=== PATIENT | female | born 1940 | race Caucasian/White ===

== ENCOUNTER 2019-09-03 16:45 | Inpatient (IN) | payer MEDICARE ==
[~2019-09-03 16:45] MED LIST: Heparin 10,000 UNITS/ 10 ML VIAL ONE; Metoprolol Tartrate 5 MG/5 ML VIAL ONE; Nitroglycerin 0.4 MG TAB (25 Tab Bottle) ONE
[2019-09-03 17:02] LABS: #Eosinphils 0.2 thou/uL (0.0-0.7); #Lymphocytes 2.7 thou/uL (1.20-3.40); #Monocytes 0.9 thou/uL (0.11-0.59); %Eosinophils 2.1 % (0.0-10.0); %Lymphocytes 27.6 % (21.0-51.0); %Monocytes 9.3 % (0.0-10.0); %Neutrophils 60.9 % (42.0-75.0); Hemoglobin 9.4 g/dL (12.0-16.0); Mean Corpuscular HGB CONC 32.3 g/dL (32.0-36.0); Mean Corpuscular Hemoglobin 26.2 pg (27.0-31.0); Mean Corpuscular Volume 81.2 fL (78.0-98.0); Mean Platelet Volume 7.6 fL (7.4-10.4); Platelet Count 323 thou/uL (130-400); RBC Distribution Width 14.4 % (11.5-14.5); Red Blood Cell (RBC) Count 3.58 mill/uL (4.20-5.40); White Blood Cell (WBC) Count 9.8 thou/uL (4.8-10.8)
[2019-09-03] MEDS ORDERED: Nitroglycerin 2% Ointment 1 INCH/1 GM Packet ONE (17:14)
--- NOTE | 2019-09-03 17:25 | RAD ---
CHEST ONE VIEW: Indication: History of FTMI. Comparison: 02-19-14 FINDINGS: There is cardiomegaly with pulmonary vascular congestion. There are tiny bilateral pleural effusions. There is mild interstitial edema. There is midline sternotomy changes. No acute osseous abnormality is evident. IMPRESSION: Findings suspicious for mild CHF. POS: CET
[2019-09-03 17:26] LABS: INR-International Normal Ratio 1.3; PTT 33.3 SEC (22.9-36.1); Prothrombin Time 16.5 SEC (12.0-14.7)
[2019-09-03 17:42] LABS: ALT (SGPT) 17 U/L (8-55); AST (SGOT) 34 U/L (5-34); Albumin 3.9 g/dL (3.4-4.8); Alkaline Phosphatase 77 U/L (40-110); Anion Gap 15 mmol/L (10-20); BUN (Urea Nitrogen) 33 mg/dL (9.8-20.1); Bilirubin, Total 0.3 mg/dL (0.2-1.2); CK (CPK) 79 U/L (29-168); Calc. Creatinine Clearance 0 mL/min (70-130); Carbon Dioxide 22 mmol/L (23-31); Chloride 97 mmol/L (98-107); Estimated GFR-MDRD 30; Globulin 3.2 g/dL (2.4-3.5); Glucose 347 mg/dL (83-110); Potassium 5.6 mmol/L (3.5-5.1); Protein, Total 7.1 g/dL (6.0-8.3); Sodium 128 mmol/L (136-145)
[2019-09-03 17:54] LABS: CKMB 3.1 ng/mL (0-6.6)
--- NOTE | 2019-09-03 20:35 | PDOC.FPRHP ---
- History of Present Illness Chief Complaint: chest pain History of Present Illness: Patient is a 79F with a PMHx of afib, DM2, HTN, HLD, CAD that presents with chest pain. Per the patient the pain began around 130pm today. She describes the pain as tightness. She also describes pain of her upper arms bilaterally. She has a hx of an KS and cardiac stent placed in March 2004 and cardiac bypass in June 2004. She also had a cath in 2013 at which point it was recommended to her to pursue medical management. With her hx of afib, she also reports of several cardioversions in the past. Patient in NSR on evaluation. Dr. Kumar was consulted from the ED and recommended that the patient be started on a heparin drip and given 5mg metoprolol. By the time of evaluation the patient's chest pain had resolved with nitrostat. ED Course: sublingal nitro x 2, 5mg lopressor, 5000u heparin - Allergies/Adverse Reactions Allergies Allergy/AdvReac Type Severity Reaction Status Date / Time Sulfa (Sulfonamide Allergy Verified 02/08/14 21:53 Antibiotics) - Home Medications Medication Instructions Recorded Confirmed Type Docusate [Colace] 100 mg PO DAILY 02/09/14 09/04/19 History Glimepiride 2 tab PO QAM 02/09/14 09/04/19 History Glimepiride 4 mg PO QPM 02/09/14 09/04/19 History Levemir Flexpen [Levemir FlexPen] 35 units SQ BID 02/09/14 09/04/19 History Lorazepam 1 mg PO TID 02/09/14 09/04/19 History Omeprazole [Prilosec] 20 mg PO DAILY 02/09/14 09/04/19 History Rosuvastatin [Crestor] 0.5 tab PO DAILY 02/09/14 09/04/19 History Temazepam 15 mg PO HS 02/09/14 09/04/19 History Ubidecarenone [Co Q-10] 200 mg PO DAILY 02/09/14 09/04/19 History Apixaban [Eliquis] 5 mg PO BID #0 tab 02/13/14 09/04/19 Rx Aspirin [Ecotrin Low Strength] 81 mg PO DAILY #0 tab 02/13/14 09/04/19 Rx Carvedilol [Coreg] 3.125 mg PO BID 09/04/19 09/04/19 History Furosemide [Lasix] 20 mg PO DAILY-AC 09/04/19 09/04/19 History Ranolazine [Ranexa] 500 mg PO TID 09/04/19 09/04/19 History - History PMHx: afib, DM2, HTN, HLD, CAD PSHx: cardiac bypass 2003, cardiac cath 2013, cholecystectomy, hysterectomy FHx: both parents had CAD Social: no smoking hx, no etoh use, no drug use - Review of Systems General: denies: fever/chills, weight/appetite/sleep changes Eyes: denies: eye pain, vision changes ENT: denies: nasal congestion, rhinorrhea Respiratory: denies: cough, shortness of breath Cardiovascular: reports: chest pain, edema Gastrointestinal: reports: nausea. denies: vomiting, diarrhea Genitourinary: denies: incontinence, polyuria Skin: denies: rashes, jaundice Musculoskeletal: denies: pain, stiffness Neurological: denies: syncope, seizure Psychological: denies: anxiety, depression - Vital signs BP: [144/77] HR: [91] RR: [18] Tmax: [98.1] Pox: [98]% on [RA] Wt: [81.64kg] - Physical Exam Constitutional: NAD, well developed HEENT: EOMI, MMM Neck: supple, FROM Chest: no-tender to palpation, no lesions Heart: RRR, normal S1/S2, other (1+ pitting edema BLE) Lungs: CTAB, no respiratory distress Abdomen: soft, non-tender Musculoskeletal: normal structure, ROM grossly normal Neurological: no focal deficit, normal sensation Skin: no rash/lesions, good turgor Heme/Lymphatic: no unusual bruising or bleeding, no purpura Psychiatric: normal mood and affect, good judgment and insight FMR H&P: Results - Labs Result Diagrams: 09/04/19 04:26 09/04/19 04:26 Lab results: WBC 9.8 thou/uL (4.8-10.8) 09/03/19 16:52 Hgb 9.4 g/dL (12.0-16.0) L 09/03/19 16:52 Hct 29.1 % (36.0-47.0) L 09/03/19 16:52 MCV 81.2 fL (78.0-98.0) 09/03/19 16:52 Plt Count 323 thou/uL (130-400) 09/03/19 16:52 Neutrophils % 60.9 % (42.0-75.0) 09/03/19 16:52 Sodium 128 mmol/L (136-145) L 09/03/19 16:52 Potassium 5.6 mmol/L (3.5-5.1) H 09/03/19 16:52 Chloride 97 mmol/L (98-107) L 09/03/19 16:52 Carbon Dioxide 22 mmol/L (23-31) L 09/03/19 16:52 BUN 33 mg/dL (9.8-20.1) H 09/03/19 16:52 Creatinine 1.65 mg/dL (0.6-1.1) H 09/03/19 16:52 Glucose 347 mg/dL (83-110) H 09/03/19 16:52 Calcium 9.0 mg/dL (7.8-10.44) 09/03/19 16:52 Total Bilirubin 0.3 mg/dL (0.2-1.2) 09/03/19 16:52 AST 34 U/L (5-34) 09/03/19 16:52 ALT 17 U/L (8-55) 09/03/19 16:52 Alkaline Phosphatase 77 U/L (40-110) 09/03/19 16:52 Creatine Kinase 79 U/L (29-168) 09/03/19 16:52 CK-MB (CK-2) 3.1 ng/mL (0-6.6) 09/03/19 16:52 B-Natriuretic Peptide 805.2 pg/mL (0-100) H 09/03/19 16:52 Serum Total Protein 7.1 g/dL (6.0-8.3) 09/03/19 16:52 Albumin 3.9 g/dL (3.4-4.8) 09/03/19 16:52 Lipase 14 U/L (8-78) 09/03/19 16:52 - EKG Interpretation EKG: NSR ST depression I, aVL, V4, V5 No ST elevation - Radiology Interpretation Chest x-ray Status: report reviewed by me (Mild CHF) FMR H&P: A/P - Problem List (1) NSTEMI (non-ST elevated myocardial infarction) Current Visit: Yes Status: Acute Code(s): I21.4 - NON-ST ELEVATION (NSTEMI) MYOCARDIAL INFARCTION (2) History of atrial fibrillation Current Visit: Yes Status: Acute Code(s): Z86.79 - PERSONAL HISTORY OF OTHER DISEASES OF THE CIRCULATORY SYSTEM (3) HTN (hypertension) Current Visit: Yes Status: Acute Code(s): I10 - ESSENTIAL (PRIMARY) HYPERTENSION (4) HLD (hyperlipidemia) Current Visit: Yes Status: Acute Code(s): E78.5 - HYPERLIPIDEMIA, UNSPECIFIED (5) Hx of myocardial infarction Current Visit: Yes Status: Acute Code(s): I25.2 - OLD MYOCARDIAL INFARCTION (6) Diabetes mellitus Current Visit: No Status: Chronic Code(s): E11.9 - TYPE 2 DIABETES MELLITUS WITHOUT COMPLICATIONS (7) Anemia Current Visit: Yes Status: Acute Code(s): D64.9 - ANEMIA, UNSPECIFIED - Plan Patient is a 79F with PMHx of a hx of afib, DM2, HTN, HLD, CAD that is admitted for NSTEMI #NSTEMI #Hx of KS #Hx of cath that resulted in medical management -EKG shows ST depression, no ST elevation -initial troponin 0.07, will continue to trend -chest pain improved with sl nitro -Dr. Kumar consulted in ED, started patient on heparin bolus with recommendations of medical management at this time -will continue heparin drip -appreciate further recs -will continue on heparin with heparin protocol -will continue patient's home meds -nitrostat prn -monitor on telemetry overnight #Anemia -hgb 9.4 -hbg >12 earlier last year -FOBT pending -will closely monitor hgb on heparin drip -iron studies pending #HLD -continue home meds #HTN -continue home meds #CAD -continue home meds #DM2 -continue home meds -ISS -ACHS accuchecks #Hx of afib -patient currently in NSR -will monitor on telemetry DVT ppx: heparin Diet: HH, CC Dispo: inpatient for NSTEMI, heparin drip, cardiology consulted, appreciate recs ; will continue to monitor on telemetry Code: Full PCP: CC FMR H&P: Upper Level - Pertinent history 79 yo F here with complaint of chest pain. She has a known hx of non operable CAD. She was recently admitted to the med with similar complaints. At that time she was also noted to be anemic and was transfused 2 units PRBC. There has been no further work up to characterize the source of the anemia to this point. She also has a hx of HFrEF and DM2. She describes the chest pain as tightness that radiates to her back and arms. This is similar to her previous KS. Cardiology was consulted from the ER who confirmed that she was only amenable to medical management and ordered that she be started on a heparin. PMHx CAD HFrEF DM2 - Pertinent findings See product development intern note for full ROS, PE, vitals, and labs ROS General Denies fever or chills HEENT denies sore throat or ear pain CV Complains of CP. Denies palpitations Resp Denies cough or SOB GI Denies of abdominal pain or n/v/d, denies black or red stools Complains of decreased urinary output Neuro denies weakness or numbness. Complains of 1 episode of lip smacking PE General A&O x4 HEENT NCAT CV RRR, no murmur Resp CTA Abd Soft Extremities no edema, equal pedal pulses Neuro no focal deficits - Plan Date/Time: 09/03/192034 I, Femi Webster DO, have evaluated this patient and agree with findings/plan as outlined by product development intern resident. Pertinent changes/additions are listed here. 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 Webster and Sheng on 09/03. I agree with the History, Examination, Assessment and Plan documented above with any addition or exceptions noted below. HPI as above. Patient was doing nothing in particular when the pain began. Similar to previous episodes. No nausea or diaphoresis. Medical management per cardiology.
[2019-09-03 20:39] LABS: Troponin I 0.147 ng/mL (< 0.028)
[2019-09-03] MEDS ORDERED: Acetaminophen 325 MG TAB PO PRN (21:18)
[2019-09-03] MEDS ORDERED: Ondansetron ODT 4 MG TAB PO PRN (21:18)
[2019-09-03] MEDS ORDERED: Dextrose 50% Abboject 50 ML SYRINGE SLOW IVP PRN (21:18)
[2019-09-03] MEDS ORDERED: Heparin 10,000 UNITS/ 10 ML VIAL SLOW IVP SCH (21:18)
[2019-09-03] MEDS ORDERED: Dextrose 5% in Water 1,000 ML IV PRN (21:18)
[2019-09-03] MEDS ORDERED: Heparin 25,000 units/D5W 500 ML IVPB SCH (21:18)
[2019-09-03] MEDS ORDERED: Non-Formulary Item 1 EACH (Levemir Flexpen [Levemir Flexpen] 35 UNITS) SQ SCH (21:19)
[2019-09-03] MEDS ORDERED: Furosemide 20 MG TAB PO SCH (21:45)
[2019-09-03] MEDS ORDERED: Insulin Glargine 35 UNITS in Pre-Filled Syringe 1 EACH SC SCH (22:00)
[2019-09-03 22:15] LABS: Hemoglobin 7.9 g/dL (12.0-16.0); Platelet Count 225 thou/uL (130-400)
[2019-09-03] MEDS: HumaLOG 300 UNITS/3 ML VIAL SC PRN (22:26)
[2019-09-03 23:08] LABS: Troponin I 0.181 ng/mL (< 0.028)
[2019-09-03 23:39] VITALS: BMI 31.8
--- NOTE | 2019-09-04 00:15 | CON ---
DATE OF CONSULTATION: 09/03/2019 REASON FOR CONSULTATION: Unstable angina. PRIMARY MARKETING STRATEGY MANAGER: Dr. Camden Llanos. Sat Math Tutor most recently seen here Dr. Castillo Ray. HISTORY OF PRESENT ILLNESS: Ms. Rojas is a 79-year-old woman with history of severe coronary disease. The patient was seen here most recently in 2013 with increasing angina. She had undergone bypass surgery in 2003. She had a left internal mammary placed to the LAD and a vein graft to the right coronary artery. In 2013, which she underwent cardiac catheterization noted the right coronary vein graft had occluded. The internal mammary is patent. 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 Really medical therapy is the only option. Dr. Del Valle saw her and deemed her not a reoperative candidate. The patient was recently hospitalized at [facility] with anemia. She received packed red blood cells and had her Ranexa dose increase and then she was released. The patient had the onset of severe substernal chest pain today. She came here and she was mildly tachycardic. She was given metoprolol with that the heart rate came down under 100 and her chest pain resolved. PAST MEDICAL HISTORY: 1. Severe coronary disease as outlined above. 2. Left ventricular dysfunction. 3. Atrial fibrillation, apparently chronic. MEDICATION: She was takin. Eliquis 5 mg twice daily. 2. Aspirin. 3. Ranexa. SOCIAL HISTORY: No alcohol or tobacco. She has a very supportive family. ALLERGIES: SULFA. PHYSICAL EXAMINATION: GENERAL: This is a chronically ill-appearing elderly female, said she is feeling much better now. VITAL SIGNS: Her heart rate is now in the mid 80s. NECK: Neck veins are normal. Carotid normal upstrokes. LUNGS: Clear. CARDIAC: Irregularly irregular. ABDOMEN: Soft, nontender. EXTREMITIES: No clubbing or cyanosis. There is no edema. SKIN: Warm and dry. PSYCHIATRIC: Mood and affect normal. NEUROLOGIC: Grossly normal. DIAGNOSTIC STUDIES: EKG does show incomplete left bundle-branch block with a left axis deviation, some ST depression diffusely in leads 1, aVL, V4 through V6. She has Q-waves in the inferior leads. ASSESSMENT: 1. Probable unstable angina. 2. History of renal failure, most recent creatinine is 2, estimated glomerular filtration rate is 24. 3. History of anemia. 4. Atrial fibrillation. Review of the cardiac catheterization films, there is small diffusely diseased vessels. PLAN: 1. She is receiving beta blockers. 2. Anticoagulation. 3. Further care dictated by hospital course. Job ID: [id number]
[2019-09-04] MEDS: Calcium Carbonate 500 MG ChewTAB PO PRN ×3 (03:29→14:24)
[2019-09-04 04:41] LABS: #Basophils 0.1 thou/uL (0.0-0.2); #Eosinphils 0.2 thou/uL (0.0-0.7); #Lymphocytes 1.7 thou/uL (1.20-3.40); #Monocytes 0.8 thou/uL (0.11-0.59); #Neutrophils 4.7 thou/uL (1.40-6.50); %Basophils 0.9 % (0.0-1.0); %Eosinophils 3.1 % (0.0-10.0); %Lymphocytes 22.9 % (21.0-51.0); %Monocytes 10.6 % (0.0-10.0); %Neutrophils 62.5 % (42.0-75.0); Hemoglobin 8.2 g/dL (12.0-16.0); Mean Corpuscular HGB CONC 32.6 g/dL (32.0-36.0); Mean Corpuscular Hemoglobin 26.3 pg (27.0-31.0); Mean Corpuscular Volume 80.6 fL (78.0-98.0); Mean Platelet Volume 7.3 fL (7.4-10.4); Platelet Count 274 thou/uL (130-400); RBC Distribution Width 14.4 % (11.5-14.5); Red Blood Cell (RBC) Count 3.13 mill/uL (4.20-5.40); White Blood Cell (WBC) Count 7.5 thou/uL (4.8-10.8)
[2019-09-04 05:06] LABS: Anion Gap 12 mmol/L (10-20); BUN (Urea Nitrogen) 31 mg/dL (9.8-20.1); Calc. Creatinine Clearance 38 mL/min (70-130); Calcium 8.6 mg/dL (7.8-10.44); Carbon Dioxide 27 mmol/L (23-31); Cardiac Risk 5.3 (Less than 4.5); Chloride 102 mmol/L (98-107); Cholesterol 158 mg/dl (< 200 Desired); Estimated GFR-MDRD 33; Glucose 186 mg/dL (83-110); HDL Cholesterol 30 mg/dL (>60 Neg Risk); Iron 21 ug/dL (50-170); Iron Binding Capacity, Total 388 mcg/dL (265-497); LDL Cholesterol, Calculated 84 mg/dL; Potassium 4.1 mmol/L (3.5-5.1); Sodium 137 mmol/L (136-145); Triglycerides 222 mg/dL (Less than 150)
[2019-09-04 05:09] LABS: Iron 21 ug/dL (50-170); Iron Binding Capacity, Total 388 mcg/dL (265-497); Troponin I 0.296 ng/mL (< 0.028)
[2019-09-04 05:30] LABS: Ferritin 19.55 ng/mL (10-291)
--- NOTE | 2019-09-04 06:49 | PDOC.FM ---
- Subjective Subjective: Doing well this morning. Chest pain resolved with Nitro last night and has not returned. Denies shortness of breath, melena, hematochezia. Most recent Echo was done at [facility] in [place] last Tuesday. She was transfused 2U there but no workup was done for cause of anemia. She had a problem with anemia years ago that responded to iron and she stopped taking them due to constipation. Reports no workup done at that time. Last colonoscopy >10yrs ago, normal. Reports well balanced diet. - Objective MAR Reviewed: Yes Vital Signs & Weight: Vital Signs (12 hours) Temp Pulse Resp BP Pulse Ox 09/04/19 03:40 97.7 F 87 17 99/60 97 09/03/19 21:18 98.3 F 94 16 129/61 98 Weight Weight 81.647 kg Result Diagrams: 09/04/19 04:26 09/04/19 04:26 Phys Exam - Physical Examination Constitutional: NAD HEENT: moist MMs Neck: supple Respiratory: no wheezing, clear to auscultation bilateral Cardiovascular: RRR, no significant murmur Gastrointestinal: soft, non-tender Musculoskeletal: pulses present Neurological: moves all 4 limbs Psychiatric: normal affect, A&O x 3 Skin: normal turgor Dx/Plan - Plan Plan: 79F with PMHx of a hx of afib, DM2, HTN, HLD, CAD that is admitted for NSTEMI NSTEMI - EKG with ST depression, no ST elevation - Trops 0.07, 0.18, 0.296 - Dr. Kumar consulted, started on Heparin gtt and recommended no cath- medical management. Heparin stopped due to drop in Hgb. - Nitrostat prn Iron deficiency anemia - Hgb 8.2 (>12 earlier last yr) - FOBT collected - Rectal exam with no gross blood HLD - Continue home meds HTN - Continue home meds CAD, Hx of HI - Continue home meds - Bypass in 2003. 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 DM2 - On Levemir 35U BID at home. Will switch to Lantus while inpt - SSI, hypoglycemic protocol. ACHS accuchecks - CC diet Hx of afib - In NSR - On Eliquis outpt. Hold while on heparin gtt CKD - Avoid nephrotoxic meds DVT ppx: SCDs, AC held for anemia Code Status: Full Addendum - Attending - Attending Attestation Date/Time: 09/04/19 8295 I personally evaluated the patient and discussed the management with Dr. Andrew. I agree with the History, Examination, Assessment and Plan documented above with any addition or exceptions noted below. Patient here with concern for unstable angina and symptomatic anemia. She DOES NOT have criteria for full NSTEMI, would be NSTEMI type 2 at most, but her troponins have never trended into positive range. She is off heparin due to concern for GI blood losses. GI has been consulted. Patient required transfusion last week. She has no current chest pain, Cardiology on board.
[2019-09-04] MEDS ORDERED: Aspirin 81 mg Enteric Coated Tablet PO SCH (09:00)
[2019-09-04] MEDS ORDERED: Carvedilol 3.125 MG TAB PO SCH (09:00)
[2019-09-04] MEDS ORDERED: Insulin Glargine 35 UNITS in Pre-Filled Syringe 1 EACH SC SCH (09:00)
[2019-09-04] MEDS ORDERED: Glimepiride 4 MG TAB PO SCH (09:00)
[2019-09-04] MEDS: Furosemide 20 MG TAB PO SCH (09:01)
[2019-09-04] MEDS: Aspirin 325 mg Enteric Coated Tablet PO SCH (09:02)
[2019-09-04] MEDS: Rosuvastatin 5 MG TAB PO SCH (09:02)
[2019-09-04] MEDS: Docusate 100 MG CAP PO SCH (09:03)
[2019-09-04] MEDS: Ubidecarenone 50 MG CAP PO SCH (09:03)
[2019-09-04] MEDS: Lorazepam 1 MG TAB PO SCH ×3 (09:07→21:36)
[2019-09-04] MEDS: Polyethylene Glycol 3350 17 GM Packet PO SCH (09:07)
[2019-09-04] MEDS: Nitroglycerin 0.4 MG TAB (25 Tab Bottle) PO PRN ×5 (10:11→19:34)
[2019-09-04] MEDS: HumaLOG 300 UNITS/3 ML VIAL SC PRN ×3 (12:26→20:40)
[2019-09-04] MEDS: Nitroglycerin 2% Ointment 1 INCH/1 GM Packet TOP SCH ×2 (14:20→20:20)
[2019-09-04] MEDS ORDERED: Amiodarone 150 MG, Admixture Fee 1 EACH in Dextrose 5% in Water 100 ML IVPB SCH (18:15)
[2019-09-04] MEDS: Amiodarone 450 MG, Admixture Fee 1 EACH in Dextrose 5% in Water 250 ML IVPB SCH (18:52)
[2019-09-04] MEDS ORDERED: Morphine 2 MG/ML SYRINGE SLOW IVP PRN (18:57)
[2019-09-04 19:20] LABS: Troponin I 0.224 ng/mL (< 0.028)
[2019-09-04] MEDS: Carvedilol 6.25 MG TAB PO SCH (20:19)
[2019-09-04] MEDS ORDERED: Insulin Glargine 40 UNITS in Pre-Filled Syringe 1 EACH SC SCH (21:00)
[2019-09-04] MEDS: Temazepam 15 MG CAP PO SCH (21:31)
--- NOTE | 2019-09-05 02:07 | CON ---
DATE OF CONSULTATION: 09/04/2019 REASON FOR CONSULTATION: Anemia with possible GI bleeding. CONSULTING PROVIDER: Emmy Andrew MD HISTORY OF PRESENT ILLNESS: The patient is a 79-year-old female with past medical history of atrial fibrillation on anticoagulation, diabetes, hypertension, hyperlipidemia, coronary artery disease/myocardial infarction and chronic indigestion, initially presenting to the hospital with complaints of chest pain. The patient was recently admitted to the [facility] approximately 1 week ago with complaints of chest pain and during that admission, she was noted to have an anemia. She was given approximately 2 units of PRBCs secondary to this anemia and was ultimately discharged to home for further followup as an outpatient. However, over the last 24 hours, the patient experienced increased chest pain that she described as a substernal tightness that was nonradiating and reached a severity of 8/10 that prompted her to come back to [facility] for further evaluation. This chest pain was worse with eating (no specific food triggers) and increased physical activity. However, there were no clear alleviating factors other than given nitroglycerin on the way to the hospital. The patient states that over the last week, she had been having increased belching, but also experienced two occasions of darker colored stools (not black) after receiving blood product at the [facility]. With these dark stools, they were semi-solid in consistency and were easy to wipe with no sticky/tarry consistency to the stool. She also states that she had been taking omeprazole 20 mg daily with her breakfast in the mornings prior to coming to the hospital and while she was an outpatient as well. Otherwise, she denies any use of NSAIDs as an outpatient other than the baby aspirin that she takes daily as part of a cardioprotective effect. Of note, the patient was noted to have hemoglobin of approximately 10 on discharge from the [facility] in [place] around 1 week ago. However, upon further evaluation here, the patient was noted to have a hemoglobin of approximately 8.2, concerning for the presence of active bleeding. REVIEW OF SYSTEMS: A 10-category review of systems was obtained with all responses negative except for the pertinent positives as listed in the HPI. PAST MEDICAL HISTORY: As per HPI. PAST SURGICAL HISTORY: Cardiac catheterization in 2013, cholecystectomy, hysterectomy, and cardiac bypass in 2003. FAMILY HISTORY: Denies any GI malignancies. SOCIAL HISTORY: Denies any tobacco, alcohol, or illicit drug use. OUTPATIENT MEDICATIONS: Reviewed. ALLERGIES: SULFA. PHYSICAL EXAMINATION: VITAL SIGNS: Temperature 97.9, pulse 101, blood pressure 125/58, respiratory rate 18, saturating 97% on room air. GENERAL: The patient was lying in bed, in no acute distress. Alert and oriented x4. HEENT: Normocephalic, atraumatic. NECK: Supple. No JVD or scleral icterus noted. CARDIOVASCULAR: Regular rate and rhythm with no discernible murmurs, gallops, or rubs. RESPIRATORY: Clear to auscultation bilaterally with no discernible wheezes or rales. ABDOMEN: Normoactive bowel sounds. Soft, nontender, and nondistended. EXTREMITIES: No cyanosis, clubbing, or edema. LABORATORY DATA: CBC with a white blood cell count of 7.5, hemoglobin 8.2, hematocrit 25.2, platelets 274. INR 1.3. Chemistry with a sodium of 137, potassium 4.1, chloride 102, CO2 to 27, BUN 31, creatinine 1.53, glucose 186. AST 34, ALT 17, alkaline phosphatase 77, total bilirubin 0.3. The patient did get iron indices, but they were most likely obtained after infusion of blood product with an iron of 21, ferritin of 19, and a TIBC of 388, concerning for the presence of iron deficiency anemia. IMAGING DATA: No current GI imaging is available for review. ASSESSMENT AND PLAN: The patient is a 79-year-old female with past medical history of atrial fibrillation, diabetes, hypertension, hyperlipidemia, coronary artery disease/myocardial infarction and probable gastroesophageal reflux disease, presenting with intermittent chest pain concerning for acid reflux exacerbation as well as anemia with unknown etiology. Chest pain. The patient is presenting with intermittent substernal chest pain that has occurred twice over the last week with current cardiac workup negative thus far. However, it would appear that the patient underwent cardiac catheterization on September 03, 2019, but the report is not complete at this time for review. Given the exacerbation of her chest pain and alleviation with metoprolol or nitroglycerin, a cardiac etiology is more likely. However, given the worsening of her "indigestion" over the last few weeks, gastroesophageal reflux disease also within the differential. Anemia. The patient is presenting with history of anemia with a baseline H and H of approximately 10 to 11 over the last few years. However, more recently, the patient was noted to have decreased H and H with a hemoglobin of 8, where she received approximately 2 units of PRBCs at the [facility] approximately 1.5 weeks ago. However, since undergoing blood infusion, the patient did experience some darker colored stools that were semi-solid in consistency that are not truly characteristic of melena, but concerning for the presence of GI bleeding. In light of her current cardiac issues and the islam of possibly placing the patient on anticoagulation for cardiac abnormalities, upper endoscopy may be warranted for further evaluation. At this time, the differential could include esophagitis, gastritis, duodenitis, arteriovenous malformation, Dieulafoy lesion and/or GI neoplasm. RECOMMENDATIONS: 1. Would continue with cardiac workup as you are doing. 2. Would place the patient on pantoprazole 40 mg p.o. daily in light of possible acid reflux contributing to her substernal chest pain. 3. Would adhere to strict anti-reflux precautions while the patient is in the hospital. 4. Would continue to trend the patient's H and H and transfuse as necessary to maintain an H and H of 7/21. 5. Continue to monitor clinically for signs of active GI bleeding. 6. Would place the patient n.p.o. at midnight in anticipation of EGD tomorrow. Further recommendations to follow the upper endoscopy. 7. We will continue PPI 40 mg daily in light of possible upper GI bleed. 8. Since the patient has never undergone a colonoscopy, if the upper endoscopy is negative, a colonoscopy could be considered at that time for further evaluation. 9. Would obtain the records from [facility] for any iron indices that were performed prior to infusion of blood. We will continue to follow. Please call with any questions. Job ID: [id number]
[2019-09-05] MEDS: Amiodarone 450 MG, Admixture Fee 1 EACH in Dextrose 5% in Water 250 ML IVPB SCH (03:03)
[2019-09-05] MEDS: Nitroglycerin 2% Ointment 1 INCH/1 GM Packet TOP SCH ×3 (05:40→21:18)
--- NOTE | 2019-09-05 05:55 | PDOC.FM ---
- Subjective Subjective: Yesterday evening reports episode of chest pain and vomiting. She was noted to be in Aflutter on Tele, converted back to NSR with frequent PAC's after about 30min. Cardiology was called and she was started on Amio gtt and her medications were adjusted. This morning she is still on Amio 0.5 with HR 90. Reports feeling better. Currently NPO for EGD. She had one BM yesterday that was normal in color and consistency. Denies SOB, Chest pain. - Objective MAR Reviewed: Yes Vital Signs & Weight: Vital Signs (12 hours) Temp Pulse Resp BP BP BP Pulse Ox 09/05/19 05:38 98 09/05/19 03:05 98.8 F 80 20 106/55 L 98 09/04/19 20:00 98 09/04/19 19:29 97.9 F 101 H 18 125/58 L 97 09/04/19 18:42 107 H 124/81 09/04/19 17:54 105 H 110/62 Weight Weight 81.6 kg I&O: 09/03/19 09/04/19 09/05/19 06:59 06:59 06:59 Intake Total 361 Output Total 500 Balance -139 Result Diagrams: 09/04/19 04:26 09/04/19 04:26 Phys Exam - Physical Examination Constitutional: NAD HEENT: moist MMs Neck: supple Respiratory: no wheezing, clear to auscultation bilateral Cardiovascular: RRR, no significant murmur Gastrointestinal: soft, non-tender Neurological: moves all 4 limbs Psychiatric: normal affect, A&O x 3 Skin: normal turgor Dx/Plan - Plan Plan: 79F with PMHx of a hx of afib, DM2, HTN, HLD, CAD that is admitted for NSTEMI Unstable Angina - EKG with ST depression, no ST elevation - Trops 0.07, 0.18, 0.296 - Dr. Kumar consulted, briefly on heparin gtt, stopped due to concern for GI bleed - Nitrostat prn Iron deficiency anemia - Hgb 8.2 (>12 earlier last yr) - Recent transfusion 2U 1 wk ago - Rectal exam with no gross blood - GI consulted, currently NPO for EGD today - Continue Protonix 40mg daily Aflutter - Currently NSR with rate controlled on Amio 0.5mg. Plan to continue through EGD. HLD - Continue home meds HTN - Continue home meds CAD, Hx of [place] - Continue home meds - Bypass in 2003. 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 DM2 - Continue to adjust insulin to control BG, on Levemir 35U BID at home - SSI, hypoglycemic protocol. ACHS accuchecks - CC diet Hx of afib - In NSR - On Eliquis outpt CKD - Avoid nephrotoxic meds DVT ppx: SCDs, AC held for anemia Code Status: Full Addendum - Attending - Attending Attestation Date/Time: 09/05/19 1103 I personally evaluated the patient and discussed the management with Dr. Andrew. I agree with the History, Examination, Assessment and Plan documented above with any addition or exceptions noted below. Patient improved. She had episode of chest pain and nausea yesterday during episode of Aflutter per telemetry. She was started on Amio drip at that time and has been in NSR with some tachycardia. Cardiology on board. She also is undergoing EGD today for evaluation of possible GI bleeding. Further mgmt per clinical course and pending EGD. Increasing Insulin regimen to promote euglycemia.
[2019-09-05] MEDS: Aspirin 325 mg Enteric Coated Tablet PO SCH (08:49)
[2019-09-05] MEDS: Carvedilol 6.25 MG TAB PO SCH (08:49)
[2019-09-05] MEDS: Rosuvastatin 5 MG TAB PO SCH (08:50)
[2019-09-05] MEDS: Furosemide 20 MG TAB PO SCH (08:50)
[2019-09-05] MEDS: Docusate 100 MG CAP PO SCH (08:50)
[2019-09-05] MEDS: Polyethylene Glycol 3350 17 GM Packet PO SCH (08:52)
[2019-09-05] MEDS: Lorazepam 1 MG TAB PO SCH ×3 (08:52→21:23)
[2019-09-05] MEDS: Glimepiride 4 MG TAB PO SCH (08:52)
[2019-09-05] MEDS: Ubidecarenone 50 MG CAP PO SCH (08:53)
[2019-09-05] MEDS ORDERED: Insulin Glargine 40 UNITS in Pre-Filled Syringe 1 EACH SC SCH (09:00)
[2019-09-05] MEDS ORDERED: Lidocaine 1% PF 5 ML VIAL ONE (09:54)
[2019-09-05] MEDS ORDERED: ePHEDrine/0.9% NaCl/PF SYRINGE 50 mg/10 ml ONE (09:54)
[2019-09-05] MEDS ORDERED: PROPOFOL 200 MG/20 ML VIAL ONE (09:54)
[2019-09-05 14:11] LABS: Hemoglobin 8.3 g/dL (12.0-16.0)
--- NOTE | 2019-09-05 16:04 | OP ---
DATE OF PROCEDURE: 09/05/2019 PROCEDURE PERFORMED: Esophagogastroduodenoscopy, diagnostic. INDICATIONS: 1. Anemia. 2. Possible recent melena. MEDICATIONS: See Anesthesia record. FINDINGS: After discussion of the risks, benefits, and alternatives of the procedure, informed consent was obtained and witnessed. Pre-endoscopic cardiopulmonary examination was satisfactory. Time-out was performed before sedation was achieved. Sedation was achieved with Anesthesia assistance in the endoscopy unit. A Pentax adult upper endoscope was placed into the oropharynx and passed through the cricopharyngeus under direct visualization. The esophageal mucosa appeared normal throughout with a normal-appearing Z-line. There was no evidence of any esophageal varices. The endoscope was advanced into the stomach. Forward and retroflexed views of the entire gastric mucosa were obtained. The gastric mucosa appeared normal. There was no evidence of any gastric varices. No old blood or active bleeding. No bleeding lesions. The endoscope was passed through the pylorus and into the first and second portions of the duodenum, which also appeared normal. The upper endoscope was completely withdrawn and the patient allowed to recover. The patient tolerated the procedure well. There were no immediate postprocedure complications. IMPRESSION: Normal esophagogastroduodenoscopy. RECOMMENDATIONS: 1. Regular diet. 2. Continue with cardiac workup. 3. Consider colonoscopy once cardiac workup is complete and cardiac status optimized. Discussed with Dr. Swartz. Job ID: [id number]
[2019-09-05] MEDS: HumaLOG 300 UNITS/3 ML VIAL SC PRN ×2 (17:14→21:14)
[2019-09-05] MEDS: Amiodarone 200 MG TAB PO SCH (17:23)
[2019-09-05] MEDS: Temazepam 15 MG CAP PO SCH (21:14)
[2019-09-05] MEDS: Insulin Glargine 45 UNITS in Pre-Filled Syringe 1 EACH SC SCH (21:14)
[2019-09-06] MEDS: Nitroglycerin 2% Ointment 1 INCH/1 GM Packet TOP SCH (05:30)
--- NOTE | 2019-09-06 05:48 | PDOC.FM ---
- Subjective Subjective: Feeling well this morning. Denies chest pain but does have some shortness of breath with ambulation. Concerned about a little redness and swelling of right wrist where IV had infiltrated. Otherwise no complaints and expresses she would like to go home today if possible. - Objective MAR Reviewed: Yes Vital Signs & Weight: Vital Signs (12 hours) Temp Pulse Resp BP BP Pulse Ox 09/06/19 03:46 97.7 F 70 16 108/56 L 99 09/05/19 20:00 98 09/05/19 19:20 98.3 F 93 16 156/63 H 98 Weight Weight 81 kg I&O: 09/04/19 09/05/19 09/06/19 06:59 06:59 06:59 Intake Total 361 780 Output Total 500 600 Balance -139 180 Result Diagrams: 09/05/19 13:03 09/04/19 04:26 Phys Exam - Physical Examination Constitutional: NAD HEENT: moist MMs Neck: supple Respiratory: no wheezing, clear to auscultation bilateral Cardiovascular: RRR, no significant murmur Gastrointestinal: no distention trace bilateral LE edema. Right wrist edema mild redness but distal to IV Neurological: moves all 4 limbs Psychiatric: normal affect, A&O x 3 Skin: normal turgor Dx/Plan - Plan Plan: 79F with pmh hx of afib, DM2, HTN, HLD, CAD admitted for Unstable Angina found to have iron def anemia Iron deficiency anemia - Hgb 8.3. Recent transfusion 2U 1 wk ago - Rectal exam with no gross blood - GI consulted. EGD nml. Colonoscopy once stable from cardiac standpoint - Continue Protonix 40mg daily Thrombophlebitis - Tylenol PRN and warm compresses Aflutter - Currently NSR. Amiodarone 400mg BID. Unstable Angina, resolved - EKG with ST depression, no ST elevation - Trops 0.07, 0.18, 0.296 - Dr. Kumar consulted, briefly on heparin gtt, stopped due to concern for GI bleed - Nitrostat prn HLD - Continue home meds HTN - Continue home meds CAD, Hx of [place] - Continue home meds - Bypass in 2003. 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 DM2 - Continue to adjust insulin to control BG, on Levemir 35U BID at home. Uncontrolled however AM insulin was held yesterday. - SSI, hypoglycemic protocol. ACHS accuchecks - CC diet Hx of afib - In NSR - On Eliquis outpt CKD - Avoid nephrotoxic meds DVT ppx: SCDs, AC held for anemia Code Status: Full Addendum - Attending - Attending Attestation Date/Time: 09/06/19 1055 I personally evaluated the patient and discussed the management with Dr. Andrew. I agree with the History, Examination, Assessment and Plan documented above with any addition or exceptions noted below. Patient improved. She is now on PO Amiodarone. Has some IV related pain that may be related to infiltration versus phlebitis. Continue to monitor and apply warm compresses. Awaiting further input from GI regarding inpatient/outpatient workup of possible GI bleed. Cardiology managing her Atrial dysrhythmia.
[2019-09-06] MEDS: Amiodarone 200 MG TAB PO SCH ×2 (09:14→21:11)
[2019-09-06] MEDS: Ubidecarenone 50 MG CAP PO SCH (09:14)
[2019-09-06] MEDS: Polyethylene Glycol 3350 17 GM Packet PO SCH (09:14)
[2019-09-06] MEDS: Glimepiride 4 MG TAB PO SCH (09:15)
[2019-09-06] MEDS: Lorazepam 1 MG TAB PO SCH ×3 (09:15→21:12)
[2019-09-06] MEDS: Aspirin 325 mg Enteric Coated Tablet PO SCH (09:15)
[2019-09-06] MEDS: Rosuvastatin 5 MG TAB PO SCH (09:15)
[2019-09-06] MEDS: Docusate 100 MG CAP PO SCH (09:15)
[2019-09-06] MEDS: Insulin Glargine 45 UNITS in Pre-Filled Syringe 1 EACH SC SCH ×2 (09:15→21:11)
[2019-09-06] MEDS: Calcium Carbonate 500 MG ChewTAB PO PRN (12:46)
[2019-09-06] MEDS: Isosorbide Mononitrate (ER) 30 MG TAB PO SCH (12:46)
[2019-09-06] MEDS: HumaLOG 300 UNITS/3 ML VIAL SC PRN ×2 (13:44→17:25)
[2019-09-06 18:35] LABS: Bilirubin Negative (Negative); Blood, Urine Negative (Negative); Clarity Clear (Clear); Glucose, Urine (Dipstick) Greater than 1000 mg/dL (Negative); Leukocyte 25 Leu/uL (Negative); Nitrite Negative (Negative); Protein, Urine (Dipstick) Negative (Neg-Trace); RBC/HPF 0-3 HPF (0-3); Squamous Epithelial 0-3 HPF (0-3); Urobilinogen Normal mg/dL (Less than 2)
[2019-09-06 18:36] LABS: Bacteria/HPF 1+ HPF (None Seen)
[2019-09-06] MEDS: Temazepam 15 MG CAP PO SCH (21:11)
--- NOTE | 2019-09-07 06:11 | PDOC.FM ---
- Subjective Subjective: Feeling well this morning. Wrist pain has improved. She is concerned about her LE edema. Worse in the evenings. She currently has her legs down sitting in the chair. Denies shortness of breath, chest pain, palpitations, blood in stool. - Objective MAR Reviewed: Yes Vital Signs & Weight: Vital Signs (12 hours) Temp Pulse Resp BP BP Pulse Ox 09/07/19 04:00 97.8 F 66 16 115/56 L 99 09/07/19 03:00 98.7 F 76 16 151/56 H 97 09/06/19 20:35 98.3 F 80 16 109/64 100 Weight Weight 81 kg I&O: 09/05/19 09/06/19 09/07/19 06:59 06:59 06:59 Intake Total 361 780 Output Total 500 600 Balance -139 180 Result Diagrams: 09/05/19 13:03 09/04/19 04:26 Phys Exam - Physical Examination Constitutional: NAD HEENT: moist MMs Neck: supple Respiratory: no wheezing, clear to auscultation bilateral Cardiovascular: no significant murmur frequent PACs Gastrointestinal: soft, non-tender Musculoskeletal: edema present Neurological: moves all 4 limbs Psychiatric: normal affect, A&O x 3 Skin: normal turgor Dx/Plan - Plan Plan: 79 female with pmh hx of afib, DM2, HTN, HLD, CAD admitted for Unstable Angina found to have iron def anemia Iron deficiency anemia - Hgb 8.3. Recent transfusion 2U 1 wk ago - Rectal exam with no gross blood - GI consulted. EGD nml. Colonoscopy once stable from cardiac standpoint - Continue Protonix 40mg daily Thrombophlebitis - Tylenol PRN and warm compresses Aflutter, resolved - Currently NSR with frequent PACs, tele reviewed. Amiodarone 400mg BID. - Dr Ray consulted, apprec recs Unstable Angina, resolved - EKG with ST depression, no ST elevation - Trops 0.07, 0.18, 0.296 - Started on Imdur LE edema - Resume home lasix, monitor BP as low yesterday HLD - Continue home meds HTN - Holding home meds due to low BP, restart once indicated CAD, Hx of [place] - Continue home meds - Bypass in 2003. 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 DM2 - Continue to adjust insulin to control BG, on Levemir 35U BID at home. - SSI, hypoglycemic protocol. ACHS accuchecks - CC diet Hx of afib - In NSR - On Eliquis outpt CKD - Avoid nephrotoxic meds DVT ppx: SCDs, AC held for anemia Code Status: Full Addendum - Attending - Attending Attestation Date/Time: 09/07/19 1003 I personally evaluated the patient and discussed the management with Dr. Andrew. I agree with the History, Examination, Assessment and Plan documented above with any addition or exceptions noted below. Patient should be stable for discharge today after discussing with cardiology. She will need further GI workup as outpatient.
[2019-09-07] MEDS: Glimepiride 4 MG TAB PO SCH (08:29)
[2019-09-07] MEDS: Docusate 100 MG CAP PO SCH (08:29)
[2019-09-07] MEDS: Ubidecarenone 50 MG CAP PO SCH (08:29)
[2019-09-07] MEDS: Polyethylene Glycol 3350 17 GM Packet PO SCH (08:29)
[2019-09-07] MEDS: Amiodarone 200 MG TAB PO SCH (08:30)
[2019-09-07] MEDS: Rosuvastatin 5 MG TAB PO SCH (08:30)
[2019-09-07] MEDS: Lorazepam 1 MG TAB PO SCH ×2 (08:31→08:33)
[2019-09-07] MEDS: Insulin Glargine 45 UNITS in Pre-Filled Syringe 1 EACH SC SCH (08:31)
[2019-09-07] MEDS ORDERED: Aspirin 81 mg Enteric Coated Tablet PO SCH (09:00)
[2019-09-07 11:19] VITALS: BP 132/62; TEMP 98
[2019-09-07] MEDS: Isosorbide Mononitrate (ER) 30 MG TAB PO SCH (11:20)
[2019-09-07] MEDS: HumaLOG 300 UNITS/3 ML VIAL SC PRN ×2 (11:21→12:55)
--- NOTE | 2019-09-09 23:52 | EKG ---
Test Reason : Blood Pressure : / mmHG Vent. Rate : 106 BPM Atrial Rate : 107 BPM P-R Int : 000 ms QRS Dur : 102 ms QT Int : 334 ms P-R-T Axes : 000 008 194 degrees QTc Int : 443 ms Atrial fibrillation with rapid ventricular response Abnormal ECG When compared with ECG of 03-SEP-2019 16:49, (Unconfirmed) Incomplete left bundle branch block is no longer Present T wave inversion more evident in Anterolateral leads Confirmed by Quan SERRA ([id number]) on 09/09/2019 11:52:04 PM Referred By: ÁNGEL Confirmed By:Quan SERRA
--- NOTE | 2019-09-09 23:54 | EKG ---
Test Reason : Blood Pressure : / mmHG Vent. Rate : 098 BPM Atrial Rate : 098 BPM P-R Int : 096 ms QRS Dur : 104 ms QT Int : 364 ms P-R-T Axes : -02 023 154 degrees QTc Int : 464 ms Sinus rhythm with short AR with Premature supraventricular complexes Marked ST abnormality, possible lateral subendocardial injury Abnormal ECG When compared with ECG of 04-SEP-2019 10:12, (Unconfirmed) Sinus rhythm has replaced Atrial fibrillation Nonspecific T wave abnormality has replaced inverted T waves in Inferior leads Confirmed by Quan SERRA ([id number]) on 09/09/2019 11:53:31 PM Referred By: ÁNGEL Confirmed By:Quan SERRA
--- NOTE | 2019-09-09 23:59 | EKG ---
Test Reason : STAT CP Blood Pressure : / mmHG Vent. Rate : 116 BPM Atrial Rate : 120 BPM P-R Int : 000 ms QRS Dur : 116 ms QT Int : 334 ms P-R-T Axes : 000 007 179 degrees QTc Int : 464 ms Sinus rhythm with PAC's . Incomplete left bundle branch block Marked ST abnormality, possible inferolateral subendocardial injury Abnormal ECG When compared with ECG of 04-SEP-2019 11:14, (Unconfirmed) . No significant change. Confirmed by Quan SERRA ([id number]) on 09/09/2019 11:58:34 PM Referred By: Augustine BRITTON Confirmed By:Quan SERRA
--- NOTE | 2019-09-10 00:05 | EKG ---
Test Reason : Blood Pressure : / mmHG Vent. Rate : 096 BPM Atrial Rate : 096 BPM P-R Int : 100 ms QRS Dur : 110 ms QT Int : 370 ms P-R-T Axes : -20 030 201 degrees QTc Int : 467 ms Sinus rhythm with short [place] with Premature supraventricular complexes Incomplete left bundle branch block Marked ST abnormality, possible lateral subendocardial injury Abnormal ECG When compared with ECG of 04-SEP-2019 18:28, (Unconfirmed) Sinus rhythm has replaced Atrial fibrillation Confirmed by Quan SERRA ([id number]) on 09/10/2019 12:05:01 AM Referred By: REBA Confirmed By:Quan SERRA
--- NOTE | 2019-09-10 03:48 | PQF ---
SHANELLE TITUS JASON MD [id number] [facility]-285 [id number] CLINICAL DOCUMENTATION CLARIFICATION FORM: POST DISCHARGE Addendum to original discharge summary date: ____ Late entry note date: 09/13/2019 DATE: 09/10/2019 ATTN: Kristopher Mcnair Please exercise your independent, professional judgment in responding to the clarification form. Clinical indicators are provided on the bottom of this form for your review Please check appropriate box(s): [ ] NSTEMI type 2 due to Afib [ ] NSTEMI type 2 due to Demand Ischemia [ x ] Unstable Angina PER CARDIOLOGY [ ] Other diagnosis [ ] Unable to determine In addition, please specify: Present on Admission (POA): [ X] Yes [ ] No [ ] Unable to determine CLINICAL INDICATORS - SIGNS / SYMPTOMS / LABS Laboratory Chemistry 09/03 16:52 Troponin I 0.070 Laboratory Chemistry 09/03 20:00 Troponin I 0.1470 Cardiology consult p1 09/03 Dr Kumar The pt had the onset of severe substernal chest pain today Cardiology consult p1 09/03 Dr Kumar She came here and she was mildly tachycardic. She was given metoprolol with the heart rate came down under 100 and her chest pain resolved Family Medicine PN p3 09/04 Dr Rod Pt here with concern for unstable angina and symptomatic anemia Family Medicine PN p3 09/04 Dr Rod She does not have criteria for Full NSTEMI, would be NSTEMI type 2 at most, but her troponin have never treated into positive range RISKS: Cardiology consult p1 09/03 79-year-old woman Cardiology consult p1 09/03 History of Severe coronary Disease Cardiology consult p1 09/03 Atrial Fibrillation, apparently Chronic TREATMENTS: Cardiology Consult 09/03 Naomie Gage MAR 09/03 Nitroglycerin MAR 09/04 Amiodarone Jordon Family Medicine PN p2 09/04 Heparin stopped (This form is maintained as a part of the permanent medical record) 2014 [employer]. All Rights Reserved [email or web address]
--- NOTE | 2019-09-10 11:15 | DIS ---
DATE OF ADMISSION: 09/03/2019 DATE OF DISCHARGE: 09/07/2019 RESIDENT: Emmy Andrew, PGY-2. ADMITTING ATTENDING: Dr. Francisco Blum. DISCHARGE ATTENDING: Dr. Kristopher Dacosta. CONSULTS: 1. Cardiology. 2. GI. PROCEDURES: 1. Chest x-ray on 09/03/2019,Findings suspicious for mild CHF. 2. EGD normal. PRIMARY DIAGNOSES: 1. Iron deficiency anemia. 2. Atrial flutter, resolved. 3. Unstable angina, resolved. 4. Thrombophlebitis. SECONDARY DIAGNOSES: 1. Lower extremity edema. 2. Hyperlipidemia. 3. Hypertension. 4. Coronary artery disease. 5. History of myocardial infarction. 6. Type 2 diabetes. 7. History of atrial fibrillation. 8. Chronic kidney disease. DISCHARGE MEDICATIONS: 1. Amiodarone 400 mg b.i.d. 2. Apixaban 5 mg b.i.d. 3. Aspirin 81 mg daily. 4. Colace 100 mg daily. 5. Glimepiride 4 mg daily. 6. Imdur 30 mg daily. 7. Lorazepam 1 mg p.o. t.i.d. 8. Prilosec 20 mg daily. 9. MiraLAX 17 g daily. 10. Rosuvastatin 2.5mg daily 11. Temazepam 15 mg at bedtime. 12. Coenzyme Q10 of 200 mg daily. 13. Insulin 45 units b.i.d. DISCONTINUED MEDICATIONS: Ranexa 500 mg t.i.d. HISTORY OF PRESENT ILLNESS/HOSPITAL COURSE: Ms. Rojas is a 79-year-old female with past medical history of atrial fibrillation, type 2 diabetes, hypertension, hyperlipidemia, and coronary artery disease, who presented with chest pain. She was found to be in normal sinus rhythm on evaluation. She has a history of [place] and cardiac stent placed in March 2004 and cardiac bypass in June 2004, had a catheterization in 2013 that showed blockages, but recommended medical management. Dr. Kumar was consulted from the ED and recommended that the patient be started on heparin drip and given 5 mg of metoprolol. The patient's pain resolved with Nitrostat. She received sublingual nitroglycerin x2, 5 mg of Lopressor, and a loading dose of heparin. Initial blood pressure 144/77, heart rate 91, and 98% on room air. EKG showed ST depression and no ST elevation. She was noted to have hemoglobin of 9.4, it was greater than 12 last year. She had 2 units of blood transfused last week at [facility]. Iron studies showed iron deficiency anemia. Other notable labs at admission; sodium 128, potassium 5.6, creatinine 1.65. Troponin 0.07, 0.181, 0.296. BNP 805.2. Hemoglobin decreased to 7.9 after started on heparin drip, this was stopped and her home Eliquis was also held. GI was consulted. She underwent rectal exam, showed no gross blood. She underwent EGD which was normal. Her hemoglobin stabilized at 8.2 and 8.3 the next two days. Creatinine at discharge 1.53. She was noted to be hyperglycemic, running 300s and even up to the 400s throughout her hospitalization despite being on home insulin 35 units b.i.d., therefore, this was titrated up and at discharge, she was up to 45 units b.i.d. with blood sugars running in the 120s to 130s. She did have an episode of chest pain during hospitalization and was noted to be in atrial flutter. She self converted after about 30 minutes she was started on amiodarone drip and this was titrated down and she was transitioned to oral. Her Ranexa dose was decreased and she was started on Imdur. With discussion with Cardiology and Gastroenterology, it was decided the benefit outweighs the risk of restarting Eliquis; therefore, this is resumed at discharge. She will need to follow up with her primary care doctor within 5 days for repeat hemoglobin and BMP. Follow up with GI within 3 weeks as well as Cardiology, Dr. Llanos within 2 weeks. DISPOSITION: Stable. DISCHARGE INSTRUCTIONS: 1. Location: Home. 2. Diet: Carb consistent, heart healthy, low sodium. 3. Activity: Cardiopulmonary limitations. 4. Follow up with Dr. Camden Llanos within 2-3 weeks, with Dr. Mclean in [place] within 5 days, and Dr. Swartz, [place] within 3 weeks. Job ID: [id number] [facility]
[2019-09-20] MEDS ORDERED: Amiodarone 200 MG TAB PO SCH (09:00)
[2019-10-05] MEDS ORDERED: Amiodarone 200 MG TAB PO SCH (09:00)
== END 2019-09-07 13:53 | disposition home or self-care (01) | DRG 812 ==
LOC: ERS 16:45 → 2NO 21:07
PROVIDERS: ADMIT Emergency Medicine; ATTEND Emergency Medicine
PROC: 0DJ08ZZ Inspection of Upper Intestinal Tract, Via Natural or Artificial Opening Endoscopic (ICD-10-PCS; principal; 2019-09-05)
DX: D50.9 Iron deficiency anemia, unspecified (principal); I50.22 Chronic systolic (congestive) heart failure; I13.0 Hypertensive heart and chronic kidney disease with heart failure and stage 1 through stage 4 chronic kidney disease, or unspecified chronic kidney disease; I48.92 Unspecified atrial flutter; I48.20 Chronic atrial fibrillation, unspecified; I25.110 Atherosclerotic heart disease of native coronary artery with unstable angina pectoris; E78.5 Hyperlipidemia, unspecified; N18.9 Chronic kidney disease, unspecified; E11.22 Type 2 diabetes mellitus with diabetic chronic kidney disease; I80.9 Phlebitis and thrombophlebitis of unspecified site; I49.1 Atrial premature depolarization; I25.2 Old myocardial infarction; Z88.2 Allergy status to sulfonamides; Z79.899 Other long term (current) drug therapy; Z79.4 Long term (current) use of insulin; Z79.82 Long term (current) use of aspirin; Z79.01 Long term (current) use of anticoagulants; Z95.1 Presence of aortocoronary bypass graft; Z90.49 Acquired absence of other specified parts of digestive tract; Z90.710 Acquired absence of both cervix and uterus
CPT/HCPCS: 36415; 36416; 71045; 80048; 80053; 80061; 81003; 81015; 82274; 82550; 82553; 82607; 82728; 82746; 83540; 83550; 83690; 83735; 83880; 84443; 84484; 85014; 85018; 85025; 85610; 85730; 87086; 93005; 93010; 94760; 96374; 96375; A4353; J0282; J1644; J1815; J2001; J2704; J7070; Q0162